=== PATIENT | male | born 1980 | race Caucasian/White ===

== ENCOUNTER 2021-09-11 12:24 | Outpatient (REF) | payer BC, SELFPAY ==
[2021-09-11 13:28] LABS: IDNOW Serial# 16C4AD1C
[2021-09-11 13:29] LABS: COVID-19 Test Positive (Negative)
== END 2021-09-11 12:25 | disposition home or self-care (01) ==
LOC: HO.LAB 12:24
PROVIDERS: Visit Provider Internal Medicine
DX: Z20.822 Contact with and (suspected) exposure to COVID-19 (principal)
CPT/HCPCS: 36415; 87635; C9803